=== PATIENT | male | born 2000 | race Caucasian/White ===

== ENCOUNTER 2021-05-22 18:01 | Emergency (ER) | payer OTHER ==
[2021-05-22 18:22] VITALS: BP 108/64; PULSE 82; TEMP 97.2; BMI 20.5
[2021-05-22] MEDS ORDERED: ONDANSETRON *ODT* 4 MG TABLET SL ONE (19:04)
[2021-05-22] MEDS ORDERED: DIPHTH,PERTUSS(ACELL),TET 0.5 ML DISP.SYRIN IM ONE ×3 (19:04→19:23)
[2021-05-22] MEDS ORDERED: ACETAMINOPHEN 325 MG TABLET (FP) PO ONE (19:04)
[2021-05-22] MEDS ORDERED: ACETAMINOPHEN 325 MG TABLET (FP) ONE (19:10)
[2021-05-22] MEDS ORDERED: ONDANSETRON *ODT* 4 MG TABLET ONE (19:10)
== END 2021-05-22 21:00 | disposition home or self-care (01) ==
LOC: JERFT 18:01 → JER 18:01 → JERFT 21:00
PROC: 3E0234Z Introduction of Serum, Toxoid and Vaccine into Muscle, Percutaneous Approach (ICD-10-PCS; principal; 2021-05-22)
DX: R42 Dizziness and giddiness (principal); R11.10 Vomiting, unspecified; R04.0 Epistaxis; Y04.8XXA Assault by other bodily force, initial encounter
CPT/HCPCS: 70450-TC; 70486-TC; 72125-TC; 90471; 90715; 99284-25; Q0162